=== PATIENT | female | born 1985 | race Caucasian/White ===

== ENCOUNTER 2017-08-05 12:36 | Inpatient (IN) | payer MEDICAID ==
[~2017-08-05] VITALS: Ht 152.4 cm; Wt 77.4 kg
[2017-08-05 12:51] VITALS: BP 112/71; PULSE 60; RESP 18; Ht 152.4 cm; Wt 77.4 kg
[2017-08-05] MEDS ORDERED: TERBUTALINE 1 MG/ML INJ SC STA (14:18)
[2017-08-05] MEDS ORDERED: BETAMET NA PHOS/AC(6 MG/ML) 5ML INJ IM ONE (14:30)
[2017-08-05] MEDS: LACTATED RINGER'S 1,000 ML IV SCH ×3 (14:37→22:18)
[2017-08-05] MEDS ORDERED: NIFEdipine 10 MG CAP PO ONE (17:30)
[2017-08-05] MEDS ORDERED: TERBUTALINE 1 MG/ML INJ SC ONE (17:30)
--- NOTE | 2017-08-05 17:43 | HP ---
Date/Time of Note Date/Time of Note DATE: 08/05/17 TIME: 17:40 OB - History Hx of Present Free Text/Dictation Admitted complaining of onset of labor contractions at 36 weeks and 1 day with history of previous 2. Patient has history of eclamptic seizures and was placed on aspirin by perinatologist Confirmation was made with 2 perinatologist recommended delivery at 37 weeks Estimated Due Date: Sep 01, 2017 : 4 Para: 3 Care: Good Care Ultrasounds: Normal mid trimester US Obstetrical Complications: Other (History of eclamptic seizures, currently has normal blood pressures) Medical Complications: Other (Previous 2) Past Family/Social History * Past Medical, Surgical, Family and Obstetric Histories reviewed from chart. OB Admission Exam Vital Signs Vital Signs Vital Signs Date Time Temp Pulse Resp B/P Pulse Ox O2 Delivery O2 Flow Rate FiO2 08/05/17 12:51 98.0 60 18 112/71 98 Room Air Physical Exam HEENT: WNL Heart: Rhythm Normal Lungs: Clear, Equal Abdomen: WNL Extremities: Normal Reflexes: Normal Cervical Dilatation: None Effacement: 0% Station: -3 Membranes: Intact Heart Rate: 140's Accelerations: Accelerations Present Decelerations: No Decelerations Varibility: Marked Contractions on Admission: 6-10 Minutes Apart Date/Time Contractions Began: August 05, 2017 8 or 9:00 in the morning Frequency of Contractions: Every 7 i 8 minutes Duration: Over 45 seconds Intensity: Mild OB Assessment/Plan Other Assessment: History of previous eclamptic seizures Previous 2 at 36 weeks and 1 day Persistent uterine contractions Other plan: Subcutaneous terbutaline was administered and repeated We will start on nifedipine 20 mg p.o. every 6 Steroids were given repeat in 12-24 hours depending on her condition Continue aspirin GUZMAN MEDINA MD Aug 05, 2017 17:43
[2017-08-05] MEDS ORDERED: NIFEdipine 10 MG CAP PO SCH (18:00)
--- NOTE | 2017-08-05 18:10 | RADRPT ---
PROCEDURE: OB ultrasound for biophysical profile CLINICAL INDICATION: labor. TECHNIQUE: Multiple sonographic images of the pelvis were obtained. Transabdominal view of the gr avid uterus are available for review. The images were reviewed on a PACS workstation. COMPARISON: None FINDINGS: breathing movement = 2/2 tone = 2/2 motion = 2/2 Quantitative amniotic fluid volume = 2/2 JOSE = 9.8 cm Single live intrauterine with cardiac activity at 130 beats per minute. There is a fundal placenta without previa or abruption. IMPRESSION: 1. Single living intrauterine gestation in cephalic position. 2. Biophysical profile = 8. 3. JOSE = 9.8 cm. RPTAT: [facility] Physician Beatriz Date Time Electronically viewed and signed by Physician Beatriz on 08/05/2017 18:09 /
[2017-08-05] MEDS ORDERED: ACETAMINOPHEN 500 MG TAB PO STA (22:46)
[2017-08-05] MEDS ORDERED: MAGNESIUM SULFATE 4 GM/100 ML 100 ML ONE (23:48)
[2017-08-06] MEDS ORDERED: MAGNESIUM SULFATE 4 GM/100 ML 100 ML IV ONE
[2017-08-06] MEDS ORDERED: MAGNESIUM SULFATE 20 GM/500 ML 500 ML IV SCH (00:30)
[2017-08-06] MEDS: LACTATED RINGER'S 1,000 ML IV SCH ×2 (05:45→14:26)
[2017-08-06] MEDS: MAGNESIUM SULFATE 20 GM/500 ML 500 ML IV SCH ×2 (06:02→10:22)
[2017-08-06] MEDS ORDERED: FERROUS SULFATE (EC) 325 MG TAB PO SCH (09:00)
[2017-08-06] MEDS ORDERED: ASPIRIN 81 MG TAB PO SCH (09:00)
[2017-08-06] MEDS ORDERED: PRENATAL VITAMIN PO SCH (09:00)
[2017-08-06] MEDS ORDERED: ASPIRIN (EC) 81 MG TAB PO SCH (09:00)
[2017-08-06 10:06] LABS: HEMATOCRIT 32.1 % (37.0-47.0); HEMOGLOBIN 10.3 g/dl (12.0-16.0); LYMPHOCYTES # 0.9 10^3/ul (0.8-2.9); LYMPHOCYTES % 9.9 % (15.0-51.0); MEAN CORPUSCULAR HEMOGLOBIN 25.5 pg (29.0-33.0); MEAN CORPUSCULAR HGB CONC 32.1 g/dl (32.0-37.0); MEAN CORPUSCULAR VOLUME 79.5 fl (82.0-101.0); MEAN PLATELET VOLUME 10.6 fl (7.4-10.4); MONOCYTE # 0.3 10^3/ul (0.3-0.9); MONOCYTES % 3.6 % (0.0-11.0); NEUTROPHIL # 8.1 10^3/ul (1.6-7.5); NEUTROPHILS % 85.9 % (39.0-77.0); PLATELET COUNT 231 10^3/UL (140-415); RED BLOOD COUNT 4.04 10^6/ul (4.20-5.40); RED CELL DISTRIBUTION WIDTH 16.4 % (11.5-14.5); WHITE BLOOD COUNT 9.5 10^3/ul (4.8-10.8)
[2017-08-06 10:39] LABS: ALANINE AMINOTRANSFERASE 36 IU/L (13-69); ALBUMIN 3.7 g/dl (3.3-4.9); ALBUMIN/GLOBULIN RATIO 1.19; ALKALINE PHOSPHATASE 211 IU/L (42-121); ANION GAP 14 (8-16); ASPARTATE AMINO TRANSFERASE 30 IU/L (15-46); BILIRUBIN,INDIRECT 0.7 mg/dl (0-1.1); BILIRUBIN,TOTAL 0.7 mg/dl (0.2-1.3); BLOOD UREA NITROGEN 8 mg/dl (7-20); CARBON DIOXIDE 20 mmol/L (21-31); CHLORIDE 106 mmol/L (97-110); CREATININE 0.59 mg/dl (0.44-1.00); GLUCOSE 97 mg/dl (70-220); SODIUM 136 mmol/L (135-144); TOTAL PROTEIN 6.8 g/dl (6.1-8.1)
[2017-08-06 10:42] LABS: INR 1.02; PROTIME 13.4 Sec (12.2-14.2)
[2017-08-06 10:43] LABS: PARTIAL THROMBOPLASTIN TIME 30.3 Sec (25.0-35.0)
[2017-08-06] MEDS ORDERED: BETAMET NA PHOS/AC(6 MG/ML) 5ML INJ IM ONE (14:25)
--- NOTE | 2017-08-06 16:24 | NSTRPT ---
NST Information Datetime Report Generated by CPN: 08/06/2017 16:24 Datetime: 08/05/2017 09:00 NST Information EGA: 36.2 Test Number: 6 Time on Monitor: 08/05/2017 09:09 Time off Monitor: 08/05/2017 09:39 NST Duration (Min): 30 Reason for NST: Other Reason for NST Other: Hx eclamptic seizure on ASA Test and Monitor Explained: Monitor Explained; Test Explained; Verbalized Understanding Pulse: 64 Resp: 18 SBP: 115 DBP: 60 Test Evaluation NST Interventions: Reposition Patient Patient States Movement: Present Contraction Frequency: X2, denies FHR Baseline : 140 Variability: Moderate 6-25bpm Accelerations: 15X15 Decelerations: None FHR Category: Category I NST Results: Reactive Comments: PT TO U/S, JOSE 10.0cm, cephalic 0940-Pt discharged home with labor precautions, discussed kick counts, follow-up NS T/JOSE appointment given. Pt verbalizes understanding and denies questions. Electronically Signed By E-Signature: with User ID: [id number] Datetime: 08/02/2017 09:13 NST Information EGA: 35.6 NST Duration (Min): 36 Datetime: 07/29/2017 08:38 NST Information EGA: 35.2 NST Duration (Min): 28 Datetime: 07/26/2017 10:50 NST Information EGA: 34.6 NST Duration (Min): 47 Datetime: 07/22/2017 10:41 NST Information EGA: 34.2 NST Duration (Min): 25 Datetime: 07/19/2017 11:17 NST Information EGA: 33.6
[2017-08-06] MEDS ORDERED: CEFAZOLIN 2 GM/50 ML (PMX) 50 ML IV SCH (18:00)
[2017-08-06] MEDS ORDERED: CARBOPROST 250 MCG INJ IM PRN (18:00)
[2017-08-06] MEDS ORDERED: OXYTOCIN 30 UNITS/LR 500 ML IV PRN (18:00)
[2017-08-06] MEDS ORDERED: METHYLERGONOVINE 0.2 MG INJ IM PRN (18:00)
[2017-08-06] MEDS ORDERED: MISOPROSTOL 200 MCG TAB PR PRN (18:00)
[2017-08-06] MEDS ORDERED: OXYTOCIN 30 UNITS/LR 500 ML IV SCH (18:00)
[2017-08-06] MEDS ORDERED: CEFAZOLIN 2 GM/50 ML (PMX) 50 ML IVPB ONE (18:30)
--- NOTE | 2017-08-06 20:02 | QN ---
Documentation Comment Patient with persistent uterine contractions through the night and was started by on-call physician on magnesium sulfate at 36 weeks and 2 days Magnesium sulfate DC'd and patient need was observed to have uterine contractions persistently and onset bloody show Incision was made to proceed with repeating the section at 36 weeks and 2 days Patient received 2 doses of steroid on the day before and a few hours before the onset of procedure GUZMAN MEDINA MD Aug 06, 2017 20:02
[2017-08-06] MEDS ORDERED: morphine SULFATE/PF (10 MG/10 ML) INJ ONE (20:40)
[2017-08-06] MEDS ORDERED: KETOROLAC 30 MG INJ ONE (20:40)
[2017-08-06] MEDS ORDERED: ONDANSETRON 4 MG INJ ONE (20:40)
[2017-08-06] MEDS ORDERED: METOCLOPRAMIDE 10 MG INJ ONE (20:40)
[2017-08-06] MEDS ORDERED: OXYTOCIN 30 UNITS/LR 500 ML IV ONE (20:40)
[2017-08-06] MEDS ORDERED: EPHEDrine SULFATE 50 MG/5 ML SYG ONE (20:43)
[2017-08-06] MEDS ORDERED: morphine 4 MG/ML VIAL IV PRN ×2 (21:00→21:30)
--- NOTE | 2017-08-06 21:05 | OPR ---
Operative Report Planned Procedure Procedure date Aug 06, 2017 Procedure(s) Repeat section Performed by see signature line Assisting provider: HERMAN BRAY Anesthesiologist: SARA STAPLETON MD Pre-procedure diagnosis 36 weeks and 2 days gestation Previous section 2 labor Persistent uterine contractions Anesthesia Type: spinal Procedure Description Under satisfactory anaesthesia a Pfannenstiel incision was made two fingerbreadth above and parallel to the symphysis of pubis. Incision was extended laterally to the border of the Recti muscles on either sides. Incision was carried down with sharp and blunt dissection until fascia was reached. Anterior Recti muscle fascia was incised in mid portion and incision extended laterally to the border of skin incision. Fascia was mobilized from muscle superiorly and Recti muscles were from midline using sharp and blunt dissection. Peritoneum was visualized; Avoiding bowel and bladder it was incised . Incision was extended superiorly and inferiorly. Bladder blade was placed. Posterior peritoneum covering the lower segment of the uterus and lower segment of the uterus were incised. Incision was extended laterally to the border of Round Lig. on either sides and baby was delivered from OP. position . Amniotic fluid appeared clear. Cord blood was obtained and cord had 3 vessels . Placenta was delivered spontaneously and appeared intact and complete. Intrauterine cavity was rubbed with a laparotomy sponge. Uterine incision was closed in 2 layers using running stitches of No1 Monocryl. Hemostasis appeared secure. Ovaries and Fallopian tubes were within normal limits. Announcing needle, lap sponge and instrument count to be correct abdomen was closed in layers as follows: Peritoneum and Recti muscles with running stitches of 20 Vicryl. Fascia with running stitch of No 1 PDS. Subcutaneous tissue with running stitches of 20 Chromic and skin was closed using layne. Patient tolerated the procedure well and was transferred to [facility] in good condition. Post-Procedure Post-procedure diagnosis Status post repeat Findings: Live Baby Clear amniotic fluid Normal right and left fallopian tubes and ovaries Estimated blood loss: other (500 mL) Specimen(s): no Grafts/Implants: no Complication(s): no Pt Condition post procedure: stable Disposition: PACU Physician Certification I, the undersigned physician, hereby certify that I have discussed the procedure described in this consent form with this patient (or the patient's legal ambulatory services representative), including: * The risk and benefits of the procedure; * Any adverse reactions that may reasonably be expected to occur; * Any alternative efficacious methods of treatment which may be medically viable ; * The potential problems that may occur during recuperation; * Potential for blood transfusion and associated risks/benefits; and * Any research or economic interest I may have regarding this treatment. I further certify that the patient/legally responsible person was encouraged to ask question and that all questions were answered. GUZMAN MEDINA MD Aug 06, 2017 21:05
[2017-08-06] MEDS ORDERED: NALOXONE (0.4 MG/ML) INJ IV PRN (21:30)
[2017-08-06] MEDS ORDERED: morphine 2 MG INJ IV PRN (21:30)
[2017-08-06] MEDS ORDERED: morphine (1 MG/ML) 10ML SYRINGE IV PRN ×3 (21:30)
[2017-08-06] MEDS ORDERED: DIPHENHYDRAMINE 50 MG INJ IV PRN ×2 (21:30)
[2017-08-06] MEDS ORDERED: ONDANSETRON 4 MG INJ IV PRN ×2 (21:30)
[2017-08-06] MEDS: KETOROLAC 30 MG INJ IV PRN (23:15)
[2017-08-07] VITALS (7 sets, daily range): BP systolic 105–118; BP diastolic 52–64; PULSE 71–80; RESP 18–20
[2017-08-07] MEDS ORDERED: LANOLIN 7 GM TUBE TOP PRN (01:30)
[2017-08-07] MEDS ORDERED: CARBOPROST 250 MCG INJ IM PRN (01:30)
[2017-08-07] MEDS ORDERED: MISOPROSTOL 200 MCG TAB PR PRN (01:30)
[2017-08-07] MEDS ORDERED: NA PHOSPHATE/BIPHOS 133 ML ENEMA PR PRN (01:30)
[2017-08-07] MEDS ORDERED: METHYLERGONOVINE 0.2 MG INJ IM PRN (01:30)
[2017-08-07] MEDS ORDERED: OXYTOCIN 30 UNITS/LR 500 ML IV PRN (01:30)
[2017-08-07] MEDS: CEFAZOLIN 2 GM/50 ML (PMX) 50 ML IV SCH ×3 (01:50→17:40)
[2017-08-07] MEDS: LACTATED RINGER'S 1,000 ML IV SCH ×3 (02:28→17:15)
[2017-08-07] MEDS: CLINDAMYCIN 300 MG CAP PO SCH ×4 (06:00→23:55)
--- NOTE | 2017-08-07 06:46 | PN ---
Date/Time of Note Date/Time of Note DATE: 08/07/17 TIME: 06:44 Assessment/Plan VTE Prophylaxis VTE Prophylaxis Intervention: ambulation Lines/Catheters IV Catheter Type (from Nrsg): Peripheral IV Subjective 24 Hr Interval Summary Free Text/Dictation Anesthesia note: A32 year female s/p spinal duramorph POD #1 is doing fine. no headache ,pain n/v , itching. back is clean no back pain, or paresthesia. care per surgery Exam/Review of Systems Vital Signs Vitals Vital Signs Date Time Temp Pulse Resp B/P Pulse Ox O2 Delivery O2 Flow Rate FiO2 08/07/17 05:20 97 21 08/07/17 04:50 98.5 80 18 117/60 Room Air Intake and Output 08/06/17 08/06/17 08/07/17 15:00 23:00 07:00 Intake Total 1000.0 ml 300.0 ml Output Total 600 ml 200 ml 400 ml Balance 400.0 ml 100.0 ml -400 ml Results Result Diagram: 08/06/17 0842 08/06/17 0842 Results 24 hrs Laboratory Tests Test 08/06/17 08:42 08/06/17 11:59 White Blood Count 9.5 Red Blood Count 4.04 L Hemoglobin 10.3 L Hematocrit 32.1 L Mean Corpuscular Volume 79.5 L Mean Corpuscular Hemoglobin 25.5 L Mean Corpuscular Hemoglobin Concent 32.1 Red Cell Distribution Width 16.4 H Platelet Count 231 Mean Platelet Volume 10.6 H Neutrophils % 85.9 H Lymphocytes % 9.9 L Monocytes % 3.6 Eosinophils % 0.0 Basophils % 0.0 Nucleated Red Blood Cells % 0.0 Neutrophils # 8.1 H Lymphocytes # 0.9 Monocytes # 0.3 Eosinophils # 0.0 Basophils # 0.0 Nucleated Red Blood Cells # 0.0 Prothrombin Time 13.4 Prothrombin Time Ratio 1.0 INR International Normalized Ratio 1.02 Activated Partial Thromboplast Time 30.3 Sodium Level 136 Potassium Level 4.0 Chloride Level 106 Carbon Dioxide Level 20 L Anion Gap 14 Blood Urea Nitrogen 8 Creatinine 0.59 Glucose Level 97 Calcium Level 7.0 L Total Bilirubin 0.7 Direct Bilirubin 0.00 Indirect Bilirubin 0.7 Aspartate Amino Transf (AST/SGOT) 30 Alanine Aminotransferase (ALT/SGPT) 36 Alkaline Phosphatase 211 H Total Protein 6.8 Albumin 3.7 Globulin 3.10 Albumin/Globulin Ratio 1.19 Rapid Plasma Reagin NONREACTIVE Hepatitis B Surface Antigen NEGATIVE Magnesium Level 5.0 H Medications Medications Current Medications Naloxone HCl (Narcan) 0.1 mg Q2M PRN IV FOR RESP RATE 8 OR LESS; Start at 21:30; Stop 08/07/17 at 21:29 Ketorolac Tromethamine (Toradol) 30 mg Q6H PRN IV PAIN Last administered on 23:15; Admin Dose 30 MG; Start 08/06/17 at 21:30; Stop 08/07/17 at 21: 29 Morphine Sulfate (morphine) 3 mg Q3H PRN IV BREAKTHROUGH PAIN; Start 08/06/17 at 21:00 Morphine Sulfate (morphine) 2 mg Q3H PRN IV PAIN LEVEL 1-5; Start 08/06/17 at 21:30; Stop 08/07/17 at 21:29 Morphine Sulfate (morphine) 4 mg Q3H PRN IV PAIN LEVEL 6-10; Start 08/06/17 at 21:30; Stop 08/07/17 at 21:29 Diphenhydramine HCl (Benadryl) 25 mg Q6H PRN IV ITCHING; Start 08/06/17 at 21: 30; Stop 08/07/17 at 21:29 Ondansetron HCl 4 mg 4 mg Q6H PRN IV NAUSEA AND/OR VOMITING Last administered on 08/07/17 02:25; Admin Dose 4 MG; Start 08/06/17 at 21:30; Stop 08/07/17 at 21:29 Lactated Ringer's 1,000 ml @ 125 mls/hr Q8H IV Last administered on 02:28; Admin Dose 125 MLS/HR; Start 08/07/17 at 01:15 Cefazolin Sodium/ Dextrose (Ancef 2 Gm/50 ml (Pmx)) 50 ml @ 100 mls/hr Q8H IV Last administered on 08/07/17 01:50; Admin Dose 100 MLS/HR; Start 08/07/17 at 01:30; Stop 08/07/17 at 17:59 Ibuprofen (Motrin) 800 mg Q8 PO ; Start 08/07/17 at 22:00 Simethicone (Mylicon) 160 mg Q8H PRN PO DISTENSION/GAS/BLOATING; Start at 01:30 Senna/Docusate Sodium (Senokot-S) 1 tab BID PO ; Start 08/07/17 at 09:00 Sodium Biphosphate/ Sodium Phosphate (Fleet Enema) 133 ml DAILY PRN ME CONSTIPATION; Start 08/07/17 at 01:30 Diphtheria/ Tetanus/Acell Pertussis (Adacel) 0.5 ml ONCE ONCE IM* ; Start 08/09 at 09:00; Stop 08/09/17 at 09:01 Measles/Mumps/ Rubella Vaccine Live 0.5 ml 0.5 ml ONCE ONCE SC* ; Start at 09:00; Stop 08/09/17 at 09:01 Oxytocin/Lactated Ringer's 500 ml @ 0 mls/hr ONCE PRN IV For Hemorrhage Management; Start 08/07/17 at 01:30 Methylergonovine Maleate (Methergine) 0.2 mg ONCE PRN IM VAGINAL BLEEDING; Start 08/07/17 at 01:30 Carboprost Tromethamine (Hemabate) 250 mcg ONCE PRN IM VAGINAL BLEEDING; Start 08/07/17 at 01:30 Misoprostol (Cytotec) 1,000 mcg ONCE PRN ME VAGINAL BLEEDING; Start 08/07/17 at 01:30 Acetaminophen/ Hydrocodone Bitart (Jesse (5/325)) 2 tab Q4H PRN PO PAIN LEVEL 1 -5; Start 08/07/17 at 21:30 Oxycodone/ Acetaminophen (Percocet (5/ 325)) 2 tab Q4H PRN PO PAIN LEVEL 6-10; Start 08/07/17 at 21:30 Clindamycin HCl (Cleocin) 300 mg Q6 PO ; Start 08/07/17 at 06:00 Bisacodyl (Dulcolax Supp) 10 mg ONCE ONCE ME ; Start 08/07/17 at 10:30; Stop 08/07/17 at 10:31 Influenza Virus Vaccine (Fluzone) 0.5 ml ONCE ONCE IM* ; Start 08/08/17 at 09: 00; Stop 08/08/17 at 09:01 SARA STAPLETON MD Aug 07, 2017 06:46
[2017-08-07 08:42] LABS: HEMATOCRIT 25.1 % (37.0-47.0); HEMOGLOBIN 7.8 g/dl (12.0-16.0); LYMPHOCYTES # 0.8 10^3/ul (0.8-2.9); LYMPHOCYTES % 6.3 % (15.0-51.0); MEAN CORPUSCULAR HEMOGLOBIN 25.1 pg (29.0-33.0); MEAN CORPUSCULAR HGB CONC 31.1 g/dl (32.0-37.0); MEAN CORPUSCULAR VOLUME 80.7 fl (82.0-101.0); MONOCYTE # 0.7 10^3/ul (0.3-0.9); MONOCYTES % 5.4 % (0.0-11.0); NEUTROPHIL # 10.7 10^3/ul (1.6-7.5); NEUTROPHILS % 87.9 % (39.0-77.0); PLATELET COUNT 207 10^3/UL (140-415); RED BLOOD COUNT 3.11 10^6/ul (4.20-5.40); RED CELL DISTRIBUTION WIDTH 16.9 % (11.5-14.5); WHITE BLOOD COUNT 12.1 10^3/ul (4.8-10.8)
[2017-08-07] MEDS: SENNA/DOCUSATE NA (8.6MG/50MG) TAB PO SCH ×2 (09:40→21:54)
[2017-08-07] MEDS ORDERED: BISACODYL 10 MG SUPP PR ONE (10:30)
[2017-08-07] MEDS: KETOROLAC 30 MG INJ IV PRN (15:38)
--- NOTE | 2017-08-07 16:56 | PN ---
Date/Time of Note Date/Time of Note DATE: 08/07/17 TIME: 16:55 Assessment/Plan VTE Prophylaxis VTE Prophylaxis Intervention: ambulation Lines/Catheters IV Catheter Type (from Nrsg): Peripheral IV Assessment/Plan Assessment/Plan Status post postop day 1 We will advance diet and ambulate Continue to monitor vital signs Subjective 24 Hr Interval Summary No bowel movement passing flatus Constitutional: BM, ambulates, flatus, improved, no complaints, urine output Pain Control: well controlled Exam/Review of Systems Vital Signs Vitals Vital Signs Date Time Temp Pulse Resp B/P Pulse Ox O2 Delivery O2 Flow Rate FiO2 08/07/17 16:00 98.9 71 18 106/56 Room Air 08/07/17 05:20 97 21 Intake and Output 08/06/17 08/06/17 08/07/17 15:00 23:00 07:00 Intake Total 1000.0 ml 300.0 ml 550 ml Output Total 600 ml 200 ml 850 ml Balance 400.0 ml 100.0 ml -300 ml Exam Free Text/Dictation Abdomen is soft bowel sounds present Incision is covered Constitutional: alert, oriented, well developed Psych: nl mood/affect, no complaints Head: atraumatic, normocephalic Eyes: EOMI, nl conjunctiva, nl lids, nl sclera ENMT: mucosa pink and moist, nl external ears & nose, nl lips & teeth, nl nasal mucosa & septum Neck: non-tender, supple Respiratory: clear to auscultation, normal air movement Cardiovascular: nl pulses, regular rate and rhythm Gastrointestinal: nl liver, spleen, non-tender, soft Musculoskeletal: nl extremities to inspection, nl gait and stance Extremities: normal pulses Neurological: CLINICAL INFORMATICS PHYSICIAN II-XII intact, nl mental status, nl speech, nl strength Skin: nl turgor, rash or lesions Lymph: nl lymph nodes Results Result Diagram: 08/07/17 0732 08/06/17 0842 GUZMAN MEDINA MD Aug 07, 2017 16:56
[2017-08-07] MEDS ORDERED: HYDROCODONE/APAP (5/325) TAB PO PRN (21:30)
[2017-08-07] MEDS: IBUPROFEN 800 MG TAB PO SCH (21:54)
[2017-08-07] MEDS: OXYCODONE/ACETAMINOPHEN (5/325) TAB PO PRN (23:56)
[2017-08-08] MEDS: LACTATED RINGER'S 1,000 ML IV SCH ×3 (01:15→17:45)
[2017-08-08 03:10] VITALS: BP 108/64; PULSE 74; RESP 20
[2017-08-08] MEDS: CLINDAMYCIN 300 MG CAP PO SCH ×3 (05:23→18:03)
[2017-08-08] MEDS: IBUPROFEN 800 MG TAB PO SCH ×3 (05:24→21:38)
[2017-08-08 06:42] LABS: BASOPHILS % 0.1 % (0.0-2.0); EOSINOPHILS % 0.1 % (0.0-7.0); HEMATOCRIT 24.4 % (37.0-47.0); HEMOGLOBIN 7.7 g/dl (12.0-16.0); LYMPHOCYTES # 1.3 10^3/ul (0.8-2.9); LYMPHOCYTES % 14.1 % (15.0-51.0); MEAN CORPUSCULAR HEMOGLOBIN 25.8 pg (29.0-33.0); MEAN CORPUSCULAR HGB CONC 31.6 g/dl (32.0-37.0); MEAN CORPUSCULAR VOLUME 81.6 fl (82.0-101.0); MEAN PLATELET VOLUME 10.3 fl (7.4-10.4); MONOCYTE # 0.6 10^3/ul (0.3-0.9); MONOCYTES % 6.2 % (0.0-11.0); NEUTROPHILS % 78.5 % (39.0-77.0); PLATELET COUNT 177 10^3/UL (140-415); RED BLOOD COUNT 2.99 10^6/ul (4.20-5.40); RED CELL DISTRIBUTION WIDTH 17.2 % (11.5-14.5); WHITE BLOOD COUNT 8.9 10^3/ul (4.8-10.8)
[2017-08-08 08:30] VITALS: BP 94/55; PULSE 70; RESP 18
[2017-08-08] MEDS ORDERED: INFLUENZA VIRUS VACCINE 0.5 ML (DISPENSING) IM* ONE (09:00)
[2017-08-08] MEDS: SENNA/DOCUSATE NA (8.6MG/50MG) TAB PO SCH ×2 (09:29→21:37)
--- NOTE | 2017-08-08 11:24 | DS ---
Date/Time of Note Date/Time of Note DATE: 08/08/17 TIME: 11:22 Discharge Summary Admission/Discharge Info Admit Date/Time Aug 05, 2017 at 17:57 Discharge Date/Time August 09 2017 Discharge Diagnosis Status post repeat section History of previous eclamptic seizures Refused tubal ligation labor Patient Condition: Good Procedures Repeat section Hx of Present Illness 40-year-old female has repeat section at 36+ weeks gestation Hospital Course Uncomplicated Home Meds Reported Medications [None] No Conflict Check 03/01/12 Follow-up Plan 3 4 days in clinic for staple removal Primary Care Provider Care Physician No Primary Time spent on discharge: > 30 minutes Pending Labs Laboratory Tests Test 08/08/17 06:00 White Blood Count 8.910^3/ul (4.8-10.8) Red Blood Count 2.9910^6/ul (4.20-5.40) Hemoglobin 7.7g/dl (12.0-16.0) Hematocrit 24.4% (37.0-47.0) Mean Corpuscular Volume 81.6fl (82.0-101.0) Mean Corpuscular Hemoglobin 25.8pg (29.0-33.0) Mean Corpuscular Hemoglobin Concent 31.6g/dl (32.0-37.0) Red Cell Distribution Width 17.2% (11.5-14.5) Platelet Count 84571^3/UL (140-415) Mean Platelet Volume 10.3fl (7.4-10.4) Neutrophils % 78.5% (39.0-77.0) Lymphocytes % 14.1% (15.0-51.0) Monocytes % 6.2% (0.0-11.0) Eosinophils % 0.1% (0.0-7.0) Basophils % 0.1% (0.0-2.0) Nucleated Red Blood Cells % 0.0/100WBC (0.0-0.0) Neutrophils # 7.010^3/ul (1.6-7.5) Lymphocytes # 1.310^3/ul (0.8-2.9) Monocytes # 0.610^3/ul (0.3-0.9) Eosinophils # 0.010^3/ul (0.0-0.5) Basophils # 0.010^3/ul (0.0-0.1) Nucleated Red Blood Cells # 0.010^3/ul (0.0-0.0) GUZMAN MEDINA MD Aug 08, 2017 11:24
--- NOTE | 2017-08-08 11:25 | DS ---
Date/Time of Note Date/Time of Note Home following day if remains stable DATE: 08/08/17 TIME: 11:24 Obstetrical Discharge Record Final Diagnosis Final Diagnosis: Term delivered Other Final Diagnosis Status post repeat Section Section: Repeat Complications Labor Condition on Discharge Physical Assessment Voiding: Yes Bowel Movement: Yes Breast: Soft, non-tender, Filling Fundus: Firm Abdomen and Incision: Abdomen is soft bowel sounds present Abdomen is not distended Incision healing well without induration and or erythema Episiotomy: Not applicable Calf Tenderness: No Patient Condition: Good GUZMAN MEDINA MD Aug 08, 2017 11:25
[2017-08-08] MEDS ORDERED: IBUP800T25 PO (11:27)
--- NOTE | 2017-08-08 11:27 | PD.PPDC ---
GEODETIC SURVEYOR Discharge Instruction Provider Information Physician Information 32-year-old female had repeat because of labor at 36 weeks 2 days Diagnosis Final Diagnosis: Status post repeat , history of eclamptic seizures Condition Patient Condition: Good Diet Diet: Resume Regular Diet Activity/Restrictions Activity: May Shower Restrictions: No Exercising No Lifting Nothing in the Vagina Return to Work or School: Oct 04, 2017 Wound/Drain Care Instructions Wound/Drain Care Instructions: Keep clean and dry Follow-up Follow-up with Physician: 3, 4, Day/Days (In clinic for staple removal) Return to clinic for OXYGEN THERAPIST Instructions: Fever greater than 101 Chills OB Instructions: Breast Tenderness Depression Comment: Refer to clinic for temperature over 100 Pelvic rest and no heart activity for 2 months Surgical Instructions: Incisional Drainage Incisional Redness GUZMAN MEDINA MD Aug 08, 2017 11:27
[2017-08-08 15:45] VITALS: BP 110/54; PULSE 80; RESP 17
[2017-08-08] MEDS: OXYCODONE/ACETAMINOPHEN (5/325) TAB PO PRN (18:07)
[2017-08-08 19:40] VITALS: BP 110/67; PULSE 75; RESP 19
[2017-08-08] MEDS ORDERED: BISACODYL 10 MG SUPP PR ONE (23:00)
[2017-08-09] MEDS: CLINDAMYCIN 300 MG CAP PO SCH ×3 (00:03→11:39)
[2017-08-09] MEDS: LACTATED RINGER'S 1,000 ML IV SCH (01:15)
[2017-08-09 04:05] VITALS: BP 109/53; PULSE 67; RESP 18
[2017-08-09] MEDS: IBUPROFEN 800 MG TAB PO SCH ×2 (05:41→13:21)
[2017-08-09 07:15] VITALS: BP 108/69; PULSE 59; RESP 19
[2017-08-09] MEDS: SENNA/DOCUSATE NA (8.6MG/50MG) TAB PO SCH (08:31)
[2017-08-09] MEDS ORDERED: DIPHTH/TET/ACEL PERTUSS (ADULT) 0.5 ML VIAL IM* ONE (09:00)
[2017-08-09] MEDS ORDERED: MEASLES,MUMPS,RUBELLA VACCINE INJ SC* ONE (09:00)
== END 2017-08-09 14:11 | disposition home or self-care (01) | DRG 766 ==
LOC: OBT 12:36 → L-D 12:39 → OBG 17:57 → OBT 17:57 → L-D 08-06 18:23 → PP1 08-07 00:45
PROVIDERS: ADMIT Obstetrics & Gynecology; ATTEND Obstetrics & Gynecology
PROC: 10D00Z1 Extraction of Products of Conception, Low, Open Approach (ICD-10-PCS; principal; 2017-08-06 20:30)
DX: O34.211 Maternal care for low transverse scar from previous cesarean delivery (principal); Z37.0 Single live birth; Z3A.36 36 weeks gestation of pregnancy
CPT/HCPCS: 76818; 80053; 83735; 84112; 85025; 85610; 85730; 86592; 86850; 86900; 86901; 87340; 90686; 90715; 94760; 96372; 99464; G0463; J0690; J0702; J1885; J2274; J2405; J2590; J2765; J3105; J3475; J7120

== ENCOUNTER 2019-05-27 13:12 | Emergency (ER) | payer MEDICAID ==
[~2019-05-27] VITALS: Ht 157.5 cm; Wt 72.7 kg
[~2019-05-27 13:12] MED LIST: ABCC1C PO; IBUP-1544 PO; ONDA4TAB8 PO
[2019-05-27 13:14] VITALS: Ht 157.5 cm; Wt 72.7 kg
--- NOTE | 2019-05-27 14:06 | ERD ---
ER Documentation Chief Complaint Chief Complaint headache that radiates to bilateral eyes x4 hrs HPI 34-year-old female, with history of migraine, presents to the emergency department, complaining of headache that started this morning. The patient denies fever, chills, no distal weakness, numbness or tingling. No reports of dizziness, blurred vision or neck pain. The patient took Excedrin with mild improvement of the symptoms. ROS All systems reviewed and are negative except as per history of present illness. Medications Home Meds Active Scripts Ondansetron Hcl* (Zofran*) 4 Mg Tablet, 4 MG PO Q8H PRN for NAUSEA AND/OR VOMITING, #12 TAB Prov:BENITA PÉREZ MD 05/27/19 Qhqubmdpstwxi-Upvehzdsor-Rivfprzj-Codeine* (Fioricet w/Codeine*) [id number] Cap, 1 CAP PO BID PRN for PAIN LEVEL 1-5, #12 CAP Prov:BENITA PÉREZ MD 05/27/19 Ibuprofen* (Ibuprofen*) 800 Mg Tablet, 800 MG PO Q8, #30 TAB 0 Refills Prov:GUZMAN MEDINA MD 08/08/17 Reported Medications [None] No Conflict Check 03/01/12 Allergies Allergies: Coded Allergies: No Known Allergy (Verified , 05/27/19) PMhx/Soc History of Surgery: Yes (HIP SURGERY 20 YEARS AGO , C SECTION ) Anesthesia Reaction: No Hx Neurological Disorder: No Hx Respiratory Disorders: No Hx Cardiac Disorders: No Hx Psychiatric Problems: No Hx Miscellaneous Medical Probl: Yes (MIGRAINE ) Hx Alcohol Use: No Hx Substance Use: No Hx Tobacco Use: No Smoking Status: Never smoker FmHx Family History: No diabetes, No coronary disease Physical Exam Vitals Vital Signs Date Temp Pulse Resp B/P (MAP) Pulse Ox O2 O2 Flow FiO2 Time Delivery Rate 05/27/19 97.2 82 16 120/56 99 13:14 (77) Physical Exam Const: No acute distress Head: Atraumatic Eyes: Normal Conjunctiva ENT: Normal External Ears, Nose and Mouth. Neck: Full range of motion. No meningismus. Resp: Clear to auscultation bilaterally Cardio: Regular rate and rhythm, no murmurs Abd: Soft, non tender, non distended. Normal bowel sounds Skin: No petechiae or rashes Back: No midline or flank tenderness Ext: No cyanosis, or edema Neur: Awake and alert Psych: Normal Mood and Affect Results 24 hrs Current Medications Medications Dose Sig/Fernando Start Time Status Last (Trade) Ordered Route PRN Stop Time Admin Dose Reason Admin Sodium 500 ml @ Q1H STAT 05/27/19 DC 05/27/19 Chloride 500 mls/hr IV 14:11 14:29 05/27/19 15:10 650 mg ONCE STAT 05/27/19 DC 05/27/19 Acetaminophen PO 14:11 14:29 (Tylenol 05/27/19 14:17 Tab) Ondansetron 4 mg ONCE STAT 05/27/19 DC 05/27/19 HCl (Zofran IV 14:11 14:29 Inj) 05/27/19 14:17 Morphine 2 mg ONCE STAT 05/27/19 DC 05/27/19 Sulfate IV 14:11 14:31 (morphine) 05/27/19 14:17 Procedures/MDM Vital signs stable, Physical exam unremarkable, neurovascular exam intact. Differential diagnosis include but not limited to: Classical migraine, sinusitis, visual corrective problems, side effects of medications, dehydration, electrolyte imbalance, endocrine/autoimmune medical condition, stress, anxiety, tension headache. Low suspicion for meningitis, GLOBAL REGULATORY AFFAIRS MANAGER tumor, cerebrovascular event. Physical examination and clinical presentation consistent most likely with migraine headache. During the ED course the patient remained stable, no new complaints. Results and clinical impression discussed with patient who agrees with management. The patient is stable to be treated outpatient and will be discharged home, some side effects of prescribed medications (headache, rash, nausea, vomiting, diarrhea, drowsiness, habituation, bleeding, hypertension, interactions with other medications) were reviewed. Follow up with the primary care provider in the next 48h has been recommended. If symptoms persist, worsen or new symptoms develop, then patient should return to the ED immediately. Instructions explained and given directly by me to the patient with acknowledgment and demonstrated understanding. Disclaimer: Inadvertent spelling and grammatical errors are likely due to EHR/dictation software use and do not reflect on the overall quality of patient care. Also, please note that the electronic time recorded on this note does not necessarily reflect the actual time of the patient encounter. Departure Diagnosis: Primary Impression: Migraine headache Condition: Stable Additional Instructions: Muchas frank por [facility] para hassan servicio. Esperamos que en hassan visita a la brenna de emergencia hassan problema medico haya sido solucionado y que se sienta mucho mejor. Para estar seguros que hassan mejoria sigue en proceso, le pedimos el favor de hacer love shannon de seguimiento medico con hassan doctor primario en los proximos 2-4 solomon. Lleve con usted estos documentos y las medicinas recetadas. Si carey sintomas empeoran, NO SE ESPERE, por favor regrese a brenna de emergencia INMEDIATAMENTE. En derek que usted no tenga un mdico de atencin primaria: Llame al mdico o clnica comunitaria de referencia que aparece abajo monica las horas de consultorio para hacer love shannon para que le vean. CLINICAS: [facility] [phone] [facility] [phone] [facility] [phone] [facility] [phone] [facility] [phone] [address] [facility] [phone] BENITA ESTRELLA MD May 27, 2019 14:06
[2019-05-27] MEDS ORDERED: ACETAMINOPHEN 325 MG TAB PO STA (14:11)
[2019-05-27] MEDS ORDERED: morphine 4 MG/ML VIAL IV STA (14:11)
[2019-05-27] MEDS ORDERED: SOD CHLORIDE 0.9% 500 ML IV STA (14:11)
[2019-05-27] MEDS ORDERED: ONDANSETRON 4 MG INJ IV STA (14:11)
[2019-05-27 15:29] VITALS: BP 128/61; PULSE 76; RESP 16
== END 2019-05-27 15:30 | disposition home or self-care (01) ==
LOC: FTE 13:12
DX: G43.909 Migraine, unspecified, not intractable, without status migrainosus (principal)
CPT/HCPCS: 96361; 96374; 96375; J2270; J2405; J7040; Z7502; Z7610